=== PATIENT | male | born 1955 | race Caucasian/White ===

== ENCOUNTER 2016-12-02 21:22 | Emergency (ER) | payer OTHER ==
--- NOTE | 2016-12-02 23:08 | DIAGNOSTIC IMAGING REPORT ---
PROCEDURE: XR CHEST 1 VIEW INDICATION: SHORTNESS OF BREATH TECHNIQUE: Portable AP view 10:24 p.m. COMPARISON: None. FINDINGS: Lungs are clear. Peribronchial cuffing. Heart and mediastinum are normal. Thorax is normal. IMPRESSION: 1. Bronchitis.
--- NOTE | 2016-12-03 00:27 | ED NURSING NOTES ---
Clinical Report - Nurses [facility] [address] [place] [address] 12/02/2016 21:24 Patient: JAVI ABBASI TRIAGE Triage time 21:57. Acuity: LEVEL 4. Alert. No acute distress. --22:02 Jocelyn Felix R.N. 21:57 12/02/16. BP: 152/73. HR: 86. RR: 16 (regular and unlabored). O2 saturation: 94% on room air. Temp: 98.2 F (oral). --22:02 Jocelyn Felix R.N. Chief Complaint: DYSPNEA and COUGH. --00:39 Jocelyn Felix R.N. Weight: 112.4 kg stated. Height/Length: 67 inches Per Patient. BMI: 38.8. --22:02 Jocelyn Felix R.N. Medications Advair Diskus Inhalation, 2x a day. Albuterol Sulfate HFA Inhalation. Aleve Oral, daily. AmLODIPine Besylate Oral (Tablet 5 mg) 1 tablet, daily. ASA Oral 81mg , daily. Lipitor Oral (Tablet 40 mg) 1 tablet, daily. Lisinopril Oral (Tablet 10 mg) 1 tablet, daily. Singulair Oral (Tablet 10 mg) 1 tablet, daily. --22: Jocelyn Felix R.N. Allergies No Known Drug Allergy. --22:01 Jocelyn Felix R.N. 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 ( pt reports yesterday pt was at work and there was a clogged drain, someone else put a carpet cleaner in it and today pt reports he put draino down the drain and "caustic fumes" made him cough and his throat closed up and he was able to slow his breathing and get his throat to open up.). This started today. Onset. (at about 1400). SOCIAL HX: Heavy tobacco smoker (cigarette)- 1 pack per day. Occasional alcohol use. No drug use. NUTRITIONAL RISK ASSESSMENT: The nutritional risk assessment revealed no deficiencies. FUNCTIONAL ASSESSMENT: Functional assessment: no impairments noted. --22:02 Jocelyn Felix R.N. PROBLEMS: Sciatica. Fractured Metatarsal. Hyperlipidemia. Asthma. Hypercholesterolemia. Hypertension. --22:02 Jocelyn Felix R.N. ADDITIONAL SURGERIES: Cardiac stent. Foot surgery. Knee Surgery. --22:02 Jocelyn Felix R.N. Interventions ID band on patient. To treatment room. --22:02 Jocelyn Felix R.N. PHYSICAL ASSESSMENT Ambulatory to room. Patient gowned. GENERAL / NEURO / PSYCH: Alert. Oriented X 4. Appears in no acute distress. HEENT: Mucous membranes are pink. RESPIRATORY: Respirations not labored. CVS: Capillary refill less than 2 seconds. SKIN: Skin is warm and dry. --22:03 Jocelyn Felix R.N. NURSING PROGRESS NOTES Head of bed elevated. Two patient identifiers checked. Call light placed in reach. Side rails up x 1. Bed placed in lowest position. Brakes of bed on. --22:03 Jocelyn Felix R.N. Patient ready for evaluation- chart flagged. --22:03 Jocelyn Felix R.N. 22:45 12/02/2016 Duoneb (Ipratropium-Albuterol) Neb TX Nebulizer 1 unit dose given. Given by the respiratory therapist. Allergies verified and confirmed 5 rights. --22:49 Jocelyn Felix R.N. 22:49 12/02/2016 Prednisone PO Tablets 40 mg given. Allergies verified and confirmed 5 rights. --22:49 Jocelyn Felix R.N. 23:21 12/02/2016 Duoneb (Ipratropium-Albuterol) Neb TX Nebulizer 1 unit dose given. Given by the respiratory therapist. Allergies verified and confirmed 5 rights. --23:21 Joceyln Felix R.N. 23:30 12/02/2016 Levofloxacin PO Tablets 500 mg given. Allergies verified and confirmed 5 rights. --23:30 Jocelyn Felix R.N. 23:30 12/02/16. BP: 138/59. HR: 75. RR: 16. O2 saturation: 95% on room air. Castillo-Irby pain scale: 2/10. --23:30 Jocelyn Felix R.N. Reassessment after medication administered. Overall patient status- he states feels better. --23:30 Jocelyn Felix R.N. DISPOSITION / DISCHARGE Condition at departure: stable. No learning barriers present. Discharge instructions provided and reviewed with the patient. Reviewed medication(s) side effects, precautions, dosing and course information. Prescription(s) given to the patient. Patient verbalized understanding. Written instructions provided in [place]. The patient was discharged home and accompanied by spouse. He left the Emergency Department ambulatory and via private vehicle. Spouse driving. --00:39 Jocelyn Felix R.N. 00:38 12/03/16. BP: 119/63. HR: 75. RR: 15 (regular and unlabored). O2 saturation: 94% on room air. Temp: deferred. Pain level now: 0/10. --00:39 Jocelyn Felix R.N. Locked/Released at 12/03/2016 0:39 by Jocelyn Felix R.N.
--- NOTE | 2016-12-03 00:27 | ED NURSING NOTES ---
Clinical Report - Nurses [facility] [address] [place] [address] 12/02/2016 21:24 Patient: JAVI ABBASI TRIAGE Triage time 21:57. Acuity: LEVEL 4. Alert. No acute distress. --22:02 Jocelyn Felix R.N. 21:57 12/02/16. BP: 152/73. HR: 86. RR: 16 (regular and unlabored). O2 saturation: 94% on room air. Temp: 98.2 F (oral). --22:02 Jocelyn Felix R.N. Chief Complaint: DYSPNEA and COUGH. --00:39 Jocelyn Felix R.N. Weight: 112.4 kg stated. Height/Length: 67 inches Per Patient. BMI: 38.8. --22:02 Jocelyn Felix R.N. Medications Advair Diskus Inhalation, 2x a day. Albuterol Sulfate HFA Inhalation. Aleve Oral, daily. AmLODIPine Besylate Oral (Tablet 5 mg) 1 tablet, daily. ASA Oral 81mg , daily. Lipitor Oral (Tablet 40 mg) 1 tablet, daily. Lisinopril Oral (Tablet 10 mg) 1 tablet, daily. Singulair Oral (Tablet 10 mg) 1 tablet, daily. --22: Jocelyn Felix R.N. Allergies No Known Drug Allergy. --22:01 Jocelyn Felix R.N. 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 ( pt reports yesterday pt was at work and there was a clogged drain, someone else put a seed cleaner in it and today pt reports he put draino down the drain and "caustic fumes" made him cough and his throat closed up and he was able to slow his breathing and get his throat to open up.). This started today. Onset. (at about 1400). SOCIAL HX: Heavy tobacco smoker (cigarette)- 1 pack per day. Occasional alcohol use. No drug use. NUTRITIONAL RISK ASSESSMENT: The nutritional risk assessment revealed no deficiencies. FUNCTIONAL ASSESSMENT: Functional assessment: no impairments noted. --22:02 Jocelyn Felix R.N. PROBLEMS: Sciatica. Fractured Metatarsal. Hyperlipidemia. Asthma. Hypercholesterolemia. Hypertension. --22:02 Jocelyn Felix R.N. ADDITIONAL SURGERIES: Cardiac stent. Foot surgery. Knee Surgery. --22:02 Jocelyn Felix R.N. Interventions ID band on patient. To treatment room. --22:02 Jocelyn Felix R.N. PHYSICAL ASSESSMENT Ambulatory to room. Patient gowned. GENERAL / NEURO / PSYCH: Alert. Oriented X 4. Appears in no acute distress. HEENT: Mucous membranes are pink. RESPIRATORY: Respirations not labored. CVS: Capillary refill less than 2 seconds. SKIN: Skin is warm and dry. --22:03 Jocelyn Felix R.N. NURSING PROGRESS NOTES Head of bed elevated. Two patient identifiers checked. Call light placed in reach. Side rails up x 1. Bed placed in lowest position. Brakes of bed on. --22:03 Jocelyn Felix R.N. Patient ready for evaluation- chart flagged. --22:03 Jocelyn Felix R.N. 22:45 12/02/2016 Duoneb (Ipratropium-Albuterol) Neb TX Nebulizer 1 unit dose given. Given by the respiratory therapist. Allergies verified and confirmed 5 rights. --22:49 Jocelyn Felix R.N. 22:49 12/02/2016 Prednisone PO Tablets 40 mg given. Allergies verified and confirmed 5 rights. --22:49 Jocelyn Felix R.N. 23:21 12/02/2016 Duoneb (Ipratropium-Albuterol) Neb TX Nebulizer 1 unit dose given. Given by the respiratory therapist. Allergies verified and confirmed 5 rights. --23:21 Jocelyn Felix R.N. 23:30 12/02/2016 Levofloxacin PO Tablets 500 mg given. Allergies verified and confirmed 5 rights. --23:30 Jocelyn Felix R.N. 23:30 12/02/16. BP: 138/59. HR: 75. RR: 16. O2 saturation: 95% on room air. Castillo-Riby pain scale: 2/10. --23:30 Jocelyn Felix R.N. Reassessment after medication administered. Overall patient status- he states feels better. --23:30 Jocelyn Felix R.N. DISPOSITION / DISCHARGE Condition at departure: stable. No learning barriers present. Discharge instructions provided and reviewed with the patient. Reviewed medication(s) side effects, precautions, dosing and course information. Prescription(s) given to the patient. Patient verbalized understanding. Written instructions provided in [place]. The patient was discharged home and accompanied by spouse. He left the Emergency Department ambulatory and via private vehicle. Spouse driving. --00:39 Jocelyn Felix R.N. 00:38 12/03/16. BP: 119/63. HR: 75. RR: 15 (regular and unlabored). O2 saturation: 94% on room air. Temp: deferred. Pain level now: 0/10. --00:39 Jocelyn Felix R.N. Locked/Released at 12/03/2016 0:39 by Jocelyn Felix R.N.
--- NOTE | 2016-12-03 00:27 | ED ORDER SUMMARY ---
..... Patient: JAVI ABBASI OrderSheet [facility] VisitID: [id number] [address] [place] [address] 61y, M Registration Date/Time: 12/02/2016 ORDER SHEET Weight: 112.4 kg (stated) Allergies: No Known Drug Allergy GENERAL ORDERS: Chest 1V Urgent (22:32 12/02/2016 Maki Lynch) (Ack 22:44 Petty) (22:44 Bessbell) MEDICATION ORDERS: DuoNeb Neb Tx 1 unit dose (NOW) (22:12/02/2016 Maki Lynch) (22:49 RCollier R.N.) Prednisone PO 40 mg (NOW) (:12/02/2016 Maki Lynch) (Ack 22:44 RCollier R.N.) (22:49 RCollier R.N.) DuoNeb Neb Tx 1 unit dose (NOW) (23:12/02/2016 Maki Lynch) (23:21 RCollier R.N.) Levofloxacin PO 500 mg (NOW) (23:13 12/02/2016 Maki Lynch) (Ack 23:21 RCollier R.N.) (23:30 RCollier R.N.) IV FLUIDS: ORDER SHEET NOTES: [Electronically signed by Jocelyn Felix R.N. (00:39 12/03/2016)] [Electronically signed by Deangelo Martinez Dr. (02:38 12/03/2016)] [Electronically locked/signed by Jocelyn Felix R.N. (00:39 12/03/2016)]
--- NOTE | 2016-12-03 00:27 | ED CLINICAL REPORT ---
Clinical Report - Physicians/Mid Levels [facility] [address] [place] [address] 12/02/2016 21:24 Patient: JAVI ABBASI Time Seen: 22:03; initial patient contact. Arrived- By private vehicle. Historian- patient. HISTORY OF PRESENT ILLNESS Chief Complaint: HISTORY OF ASTHMA. This started today and is still present. The dyspnea is described as moderate. The dyspnea is worsened by cough. He has not had worsening of dyspnea with walking, exertion or supine position. No improvement of dyspnea with rest, oxygen or sitting upright. The patient has had a cough and wheezing. No sputum production, fever, sweating episodes or chills. No chest pain or discomfort, calf pain, foot swelling or palpitations. (Exposed to fumes from cleaning fluid which initiated symptoms immediately.). Similar symptoms previously: Many times. Recent medical care: Not recently seen/assessed. REVIEW OF SYSTEMS No eye irritation, sore throat, nasal discharge, sinus drainage or nausea. No vomiting, headache, fainting episodes or blurred vision. All systems otherwise negative, except as recorded above. PAST HISTORY Sciatica. Fractured Metatarsal. Hyperlipidemia. Asthma. Hypercholesterolemia. Hypertension. SURGERIES: Cardiac stent. Foot surgery. Knee Surgery. Medications: Advair Diskus Inhalation, 2x a day. Albuterol Sulfate HFA Inhalation. Aleve Oral, daily. AmLODIPine Besylate Oral (Tablet 5 mg) 1 tablet, daily. ASA Oral 81mg , daily. Lipitor Oral (Tablet 40 mg) 1 tablet, daily. Lisinopril Oral (Tablet 10 mg) 1 tablet, daily. Singulair Oral (Tablet 10 mg) 1 tablet, daily. Allergies: No Known Drug Allergy. SOCIAL HISTORY Current every day heavy tobacco smoker. No alcohol use or drug use. ADDITIONAL NOTES The nursing notes have been reviewed. PHYSICAL EXAM Vital Signs: 12/02/2016 21:57 BP: 152/73. HR: 86. RR: 16. O2 saturation: 94%. Temp: 98.2 F. Have been reviewed. Hypertensive. Heart rate normal. Respiratory rate normal. Temperature normal. Oxygen saturation low. Appearance: Alert. No acute distress. Eyes: Eyes normal inspection. ENT: Pharynx normal. Neck: Normal inspection. No jugular venous distention. CVS: Normal heart rate and rhythm. Heart sounds normal. Respiratory: Mild respiratory distress with accessory muscle use and retractions. Mildly prolonged expirations. Mildly decreased air movement diffusely over both lungs. Expiratory moderate bilateral wheezes diffusely and posteriorly. No rales or rhonchi. Skin: Skin warm and dry. Normal skin color. Extremities: No calf tenderness. No lower extremity edema. Neuro: Oriented X 3. LABS, X-RAYS, AND EKG Chest X-ray: No acute disease. No infiltrate. (Peribronchiole cuffing). Views: AP. Technique: good. The X-rays were independently viewed by me and interpreted contemporaneously by me. Prior films were not available for comparison. PROGRESS AND PROCEDURES Disposition: Discharged home in good and improved condition. Condition: good. CLINICAL IMPRESSION Mild persistent asthma with an acute exacerbation. No status asthmaticus, pneumonia, hypoxemia or acute respiratory failure. INSTRUCTIONS Your Current Medications: CONTINUE TAKING THE FOLLOWING MEDICATIONS: Advair Diskus Inhalation : 2x a day. Albuterol Sulfate HFA Inhalation. Aleve Oral : daily. AmLODIPine Besylate Oral : Tablet 5 mg, 1 tablet daily. ASA Oral : 81mg daily. Lipitor Oral : Tablet 40 mg, 1 tablet daily. Lisinopril Oral : Tablet 10 mg, 1 tablet daily. Singulair Oral : Tablet 10 mg, 1 tablet daily. Prescription Medications: Levofloxacin 500 mg: take 1 tab orally every day for 4 days. No refills. Prednisone 20 mg: take 2 orally every day for 4 days. Dispense sufficient quantity. No refills. Follow-up: Follow up with your doctor in about two days. Call for an appointment. Blood pressure screening was not performed during this visit because the patient has an active diagnosis of hypertension. (Electronically signed by Deangelo Martinez Dr. 12/03/2016 2:38)
--- NOTE | 2016-12-03 00:27 | ED ORDER SUMMARY ---
..... Patient: JAVI ABBASI OrderSheet [facility] VisitID: [id number] [address] [place] [address] 61y, M Registration Date/Time: 12/02/2016 ORDER SHEET Weight: 112.4 kg (stated) Allergies: No Known Drug Allergy GENERAL ORDERS: Chest 1V Urgent (22:32 12/02/2016 Maki Lynch) (Ack 22:44 Petty) (22:44 Bessbell) MEDICATION ORDERS: DuoNeb Neb Tx 1 unit dose (NOW) (22:12/02/2016 Maki Lynch) (22:49 RCollier R.N.) Prednisone PO 40 mg (NOW) (:12/02/2016 Maki Lynch) (Ack 22:44 RCollier R.N.) (22:49 RCollier R.N.) DuoNeb Neb Tx 1 unit dose (NOW) (23:12/02/2016 Maki Lynch) (23:21 RCollier R.N.) Levofloxacin PO 500 mg (NOW) (23:13 12/02/2016 Maki Lynch) (Ack 23:21 RCollier R.N.) (23:30 RCollier R.N.) IV FLUIDS: ORDER SHEET NOTES: [Electronically signed by Jocelyn Felix R.N. (00:39 12/03/2016)] [Electronically signed by Deangelo Martinez Dr. (02:38 12/03/2016)] [Electronically locked/signed by Jocelyn Felix R.N. (00:39 12/03/2016)]
--- NOTE | 2016-12-03 02:38 | ED DISCHARGE INSTRUCTIONS ---
Patient: JAVI ABBASI General Instructions [facility] VisitID: [id number] [place] [address] 61y, M Registration Date/Time: 12/02/2016 Mild persistent asthma with an acute exacerbation. No status asthmaticus, pneumonia, hypoxemia or acute respiratory failure. INSTRUCTIONS Your Current Medications: CONTINUE TAKING THE FOLLOWING MEDICATIONS: Advair Diskus Inhalation : 2x a day. Albuterol Sulfate HFA Inhalation. Aleve Oral : daily. AmLODIPine Besylate Oral : Tablet 5 mg, 1 tablet daily. ASA Oral : 81mg daily. Lipitor Oral : Tablet 40 mg, 1 tablet daily. Lisinopril Oral : Tablet 10 mg, 1 tablet daily. Singulair Oral : Tablet 10 mg, 1 tablet daily. Prescription Medications: Levofloxacin 500 mg: take 1 tab orally every day for 4 days. No refills. Prednisone 20 mg: take 2 orally every day for 4 days. Dispense sufficient quantity. No refills. Follow-up: Follow up with your doctor in about two days. Call for an appointment. Blood pressure screening was not performed during this visit because the patient has an active diagnosis of hypertension. ADDITIONAL INFORMATION Bronchitis With Wheezing (Viral Or Bacterial: Adult) Bronchitis is an infection of the air passages. It often occurs during the common cold and is usually caused by a virus. Symptoms include cough with mucus (phlegm) and low-grade fever. If there is a lot of inflammation, air flow is restricted. The air passages may also go into spasm, especially if you are an asthmatic. This causes wheezing and difficulty breathing even in persons who do not have asthma. Bronchitis usually lasts 7-14 days. The wheezing should improve with treatment during the first week. An inhaler is often prescribed to relax the air passages and stop wheezing. Antibiotics will be prescribed if your doctor thinks there is also a secondary bacterial infection. Home Care: If symptoms are severe, rest at home for the first 2-3 days. When resuming activity, don't let yourself become overly tired. Do not smoke and avoid exposure to the smoke of others. You may use acetaminophen (Tylenol) or ibuprofen (Motrin, Advil) to control fever, unless another medicine was prescribed. [NOTE: If you have chronic liver or kidney disease or ever had a stomach ulcer or GI bleeding, talk with your doctor before using these medicines.] (Aspirin should never be used in anyone under 18 years of age who is ill with a fever. It may cause severe liver damage.) Your appetite may be poor so a light diet is fine. Avoid dehydration by drinking 6-8 glasses of fluids per day (water, soft, drinks, juices, tea, soup, etc.). Extra fluids will help loosen secretions in the lungs. [id number] cough medicines that containdextromethorphan(such as Robitussin DM) and decongestants (Actifed or Sudafed) may help relieve cough and congestion. [NOTE: Do not use decongestants if you have high blood pressure.] If you were given an inhaler, use it exactly as directed. If you need to use it more often than prescribed, your condition may be worsening. Contact your doctor or this facility. If prescribed, finish all antibiotic medicine, even if you are feeling better after only a few days. Follow Up With Your Doctor Or As Directed If You Are Not Starting To Feel Better After Three Days. [NOTE: If you are age 65 or older, or if you have chronic asthma or COPD, we recommend a pneumococcal vaccination every five years and a yearly influenza vaccination (flu shot) every . Ask your doctor about this. If you had an x-ray or EKG (electrocardiogram), it will be reviewed by a specialist. You will be notified of any new findings that may affect your care.] Get Prompt Medical Attention If Any Of The Following Occur: Increased wheezing, shortness of breath or pain with breathing Fever of 100.4F (38C) oral or higher, not better with fever medication Coughing up blood or increasing amounts of colored sputum Weakness, drowsiness, headache, facial pain, ear pain or a stiff neck Lower leg swelling, tenderness, redness or pain Levofloxacin Oral tablet What is this medicine? LEVOFLOXACIN (blake lima) is a quinolone antibiotic. It is used to treat certain kinds of bacterial infections. It will not work for colds, flu, or other viral infections. How should I use this medicine? Take this medicine by mouth with a full glass of water. Follow the directions on the prescription label. This medicine can be taken with or without food. Take your medicine at regular intervals. Do not take your medicine more often than directed. Do not skip doses or stop your medicine early even if you feel better. Do not stop taking except on your doctor's advice. A special MedGuide will be given to you by the pharmacist with each prescription and refill. Be sure to read this information carefully each time. Talk to your warehouse associate driver regarding the use of this medicine in children. While this drug may be prescribed for children as young as 6 months for selected conditions, precautions do apply. What side effects may I notice from receiving this medicine? Side effects that you should report to your doctor or health animal care assistant as soon as possible: -allergic reactions like skin rash or hives, swelling of the face, lips, or tongue -changes in vision -confusion, nightmares or hallucinations -difficulty breathing -irregular heartbeat, chest pain -joint, muscle or tendon pain -pain or difficulty passing urine -persistent headache with or without blurred vision -redness, blistering, peeling or loosening of the skin, including inside the mouth -seizures -unusual pain, numbness, tingling, or weakness -vaginal irritation, discharge Side effects that usually do not require medical attention (report to your doctor or health animal care assistant if they continue or are bothersome): -diarrhea -dry mouth -headache -stomach upset, nausea -trouble sleeping What may interact with this medicine? Do not take this medicine with any of the following medications: - arsenic trioxide - chloroquine - droperidol - medicines for irregular heart rhythm like amiodarone, disopyramide, dofetilide, flecainide, quinidine, procainamide, sotalol - some medicines for depression or mental problems like phenothiazines, pimozide, and ziprasidone This medicine may also interact with the following medications: - amoxapine -antacids - cisapride - dairy products - didanosine (ddI) buffered tablets or powder - haloperidol - multivitamins -NSAIDS, medicines for pain and inflammation, like ibuprofen or naproxen - retinoid products like tretinoin or isotretinoin - risperidone - some other antibiotics like clarithromycin or erythromycin - sucralfate - theophylline - warfarin What if I miss a dose? If you miss a dose, take it as soon as you remember. If it is almost time for your next dose, take only that dose. Do not take double or extra doses. Where should I keep my medicine? Keep out of the reach of children. Store at room temperature between 15 and 30 degrees C (59 and 86 degrees F). Keep in a tightly closed container. Throw away any unused medicine after the expiration date. What should I tell my health care provider before I take this medicine? They need to know if you have any of these conditions: cerebral disease irregular heartbeat kidney disease seizure disorder an unusual or allergic reaction to levofloxacin, other antibiotics or medicines, foods, dyes, or preservatives or trying to get breast-feeding What should I watch for while using this medicine? Tell your doctor or health animal care assistant if your symptoms do not improve or if they get worse. Drink several glasses of water a day and cut down on drinks that contain caffeine. You must not get dehydrated while taking this medicine. You may get drowsy or dizzy. Do not drive, use machinery, or do anything that needs mental alertness until you know how this medicine affects you. Do not sit or stand up quickly, especially if you are an older patient. This reduces the risk of dizzy or fainting spells. This medicine can make you more sensitive to the sun. Keep out of the sun. If you cannot avoid being in the sun, wear protective clothing and use a sunscreen. Do not use sun lamps or tanning beds/booths. Contact your doctor if you get a sunburn. If you are a diabetic monitor your blood glucose carefully. If you get an unusual reading stop taking this medicine and call your doctor right away. Do not treat diarrhea with [id number] products. Contact your doctor if you have diarrhea that lasts more than 2 days or if the diarrhea is severe and watery. Avoid antacids, calcium, iron, and zinc products for 2 hours before and 2 hours after taking a dose of this medicine. Prednisone Oral tablet What is this medicine? PREDNISONE (PRED ni sone) is a corticosteroid. It is commonly used to treat inflammation of the skin, joints, lungs, and other organs. Common conditions treated include asthma, allergies, and arthritis. It is also used for other conditions, such as blood disorders and diseases of the adrenal glands. How should I use this medicine? Take this medicine by mouth with a glass of water. Follow the directions on the prescription label. Take this medicine with food. If you are taking this medicine once a day, take it in the morning. Do not take more medicine than you are told to take. Do not suddenly stop taking your medicine because you may develop a severe reaction. Your doctor will tell you how much medicine to take. If your doctor wants you to stop the medicine, the dose may be slowly lowered over time to avoid any side effects. Talk to your warehouse associate driver regarding the use of this medicine in children. Special care may be needed. What side effects may I notice from receiving this medicine? Side effects that you should report to your doctor or health animal care assistant as soon as possible: allergic reactions like skin rash, itching or hives, swelling of the face, lips, or tongue changes in emotions or moods changes in vision depressed mood eye pain fever or chills, cough, sore throat, pain or difficulty passing urine increased thirst swelling of ankles, feet Side effects that usually do not require medical attention (report to your doctor or health animal care assistant if they continue or are bothersome): confusion, excitement, restlessness headache nausea, vomiting skin problems, acne, thin and shiny skin trouble sleeping weight gain What may interact with this medicine? Do not take this medicine with any of the following medications: metyrapone mifepristone This medicine may also interact with the following medications: aminoglutethimide amphotericin B aspirin and aspirin-like medicines barbiturates certain medicines for diabetes, like glipizide or glyburide cholestyramine cholinesterase inhibitors cyclosporine digoxin diuretics ephedrine female hormones, like estrogens and control pills isoniazid ketoconazole NSAIDS, medicines for pain and inflammation, like ibuprofen or naproxen phenytoin rifampin toxoids vaccines warfarin What if I miss a dose? If you miss a dose, take it as soon as you can. If it is almost time for your next dose, talk to your doctor or health animal care assistant. You may need to miss a dose or take an extra dose. Do not take double or extra doses without advice. Where should I keep my medicine? Keep out of the reach of children. Store at room temperature between 15 and 30 degrees C (59 and 86 degrees F). Protect from light. Keep container tightly closed. Throw away any unused medicine after the expiration date. What should I tell my health care provider before I take this medicine? They need to know if you have any of these conditions: Liberty's syndrome diabetes glaucoma heart disease high blood pressure infection (especially a virus infection such as chickenpox, cold sores, or herpes) kidney disease liver disease mental illness myasthenia gravis osteoporosis seizures stomach or intestine problems thyroid disease an unusual or allergic reaction to lactose, prednisone, other medicines, foods, dyes, or preservatives or trying to get breast-feeding What should I watch for while using this medicine? Visit your doctor or health animal care assistant for regular checks on your progress. If you are taking this medicine over a prolonged period, carry an identification card with your name and address, the type and dose of your medicine, and your doctor's name and address. This medicine may increase your risk of getting an infection. Tell your doctor or health animal care assistant if you are around anyone with measles or chickenpox, or if you develop sores or blisters that do not heal properly. If you are going to have surgery, tell your doctor or health animal care assistant that you have taken this medicine within the last twelve months. Ask your doctor or health animal care assistant about your diet. You may need to lower the amount of salt you eat. This medicine may affect blood sugar levels. If you have diabetes, check with your doctor or health animal care assistant before you change your diet or the dose of your diabetic medicine. You have been given the following additional information: Bronchitis With Wheezing (Adult) Levofloxacin Oral tablet Prednisone Oral tablet (Electronically signed by Deangelo Martinez Dr. 12/03/2016 2:38)
--- NOTE | 2016-12-03 02:38 | ED MAR SUMMARY ---
..... Medication Administration Record [facility] [address] [place] [address] Patient: JAVI ABBASI Visit ID: [id number] 61y, M Weight: 112.4 kg Height/Length: 67 in BMI: 38.8 ALLERGIES: No Known Drug Allergy Given 22:45 12/02/2016 Jocelyn Felix R.N. Medication Administered: DUONEB [NEB TX] (IPRATROPIUM-ALBUTEROL), Dose: 1 unit dose Nebulizer Neb TX. Medication Ordered: DuoNeb Neb Tx 1 unit dose (NOW). Given 22:49 12/02/2016 Jocelyn Felix R.N. Medication Administered: PREDNISONE [PO], Dose: 40 mg Tablets PO. Medication Ordered: Prednisone PO 40 mg (NOW). Given 23:21 12/02/2016 Jocelyn Felix R.N. Medication Administered: DUONEB [NEB TX] (IPRATROPIUM-ALBUTEROL), Dose: 1 unit dose Nebulizer Neb TX. Medication Ordered: DuoNeb Neb Tx 1 unit dose (NOW). Given 23:30 12/02/2016 Jocelyn Felix R.NDemario Medication Administered: LEVOFLOXACIN [PO], Dose: 500 mg Tablets PO. Medication Ordered: Levofloxacin PO 500 mg (NOW).
--- NOTE | 2016-12-03 02:38 | ED MED RECONCILIATION SUMMARY ---
Patient: JAVI ABBASI Medication Reconciliation Report [facility] VisitID: [id number] [address] [place] [address] 61y, M Registration Date/Time: 12/02/2016 Weight: 112.4 kg Height/Length: 67 in. BMI: 38.8 ALLERGIES: No Known Drug Allergy The patient's Home Medications are listed below: CONTINUE TAKING THE FOLLOWING MEDICATIONS: Advair Diskus Inhalation, 2x a day Albuterol Sulfate HFA Inhalation Aleve Oral, daily AmLODIPine Besylate Oral (5 mg) 1 tablet, daily ASA Oral 81mg , daily Lipitor Oral (40 mg) 1 tablet, daily Lisinopril Oral (10 mg) 1 tablet, daily Singulair Oral (10 mg) 1 tablet, daily The source(s) of the original Home Medication information: Not obtained. The following Medications were given to the patient in the Emergency Department: Prednisone [PO] PO 40 mg, administered: 12/02/2016 10:49:00 PM Duoneb [Neb Tx] Neb TX 1 unit dose, administered: 12/02/2016 10:45:00 PM Duoneb [Neb Tx] Neb TX 1 unit dose, administered: 12/02/2016 11:21:00 PM Levofloxacin [PO] PO 500 mg, administered: 12/02/2016 11:30:00 PM The following Medications were prescribed to the patient: Levofloxacin 500 mg: take 1 tab orally every day for 4 days. No refills. -- Deangelo Martinez Dr. Prednisone 20 mg: take 2 orally every day for 4 days. Dispense sufficient quantity. No refills. -- Deangelo Martinez Dr.
--- NOTE | 2016-12-03 02:38 | ED DISCHARGE INSTRUCTIONS ---
Patient: JAVI ABBASI General Instructions [facility] VisitID: [id number] [place] [address] 61y, M Registration Date/Time: 12/02/2016 Mild persistent asthma with an acute exacerbation. No status asthmaticus, pneumonia, hypoxemia or acute respiratory failure. INSTRUCTIONS Your Current Medications: CONTINUE TAKING THE FOLLOWING MEDICATIONS: Advair Diskus Inhalation : 2x a day. Albuterol Sulfate HFA Inhalation. Aleve Oral : daily. AmLODIPine Besylate Oral : Tablet 5 mg, 1 tablet daily. ASA Oral : 81mg daily. Lipitor Oral : Tablet 40 mg, 1 tablet daily. Lisinopril Oral : Tablet 10 mg, 1 tablet daily. Singulair Oral : Tablet 10 mg, 1 tablet daily. Prescription Medications: Levofloxacin 500 mg: take 1 tab orally every day for 4 days. No refills. Prednisone 20 mg: take 2 orally every day for 4 days. Dispense sufficient quantity. No refills. Follow-up: Follow up with your doctor in about two days. Call for an appointment. Blood pressure screening was not performed during this visit because the patient has an active diagnosis of hypertension. ADDITIONAL INFORMATION Bronchitis With Wheezing (Viral Or Bacterial: Adult) Bronchitis is an infection of the air passages. It often occurs during the common cold and is usually caused by a virus. Symptoms include cough with mucus (phlegm) and low-grade fever. If there is a lot of inflammation, air flow is restricted. The air passages may also go into spasm, especially if you are an asthmatic. This causes wheezing and difficulty breathing even in persons who do not have asthma. Bronchitis usually lasts 7-14 days. The wheezing should improve with treatment during the first week. An inhaler is often prescribed to relax the air passages and stop wheezing. Antibiotics will be prescribed if your doctor thinks there is also a secondary bacterial infection. Home Care: If symptoms are severe, rest at home for the first 2-3 days. When resuming activity, don't let yourself become overly tired. Do not smoke and avoid exposure to the smoke of others. You may use acetaminophen (Tylenol) or ibuprofen (Motrin, Advil) to control fever, unless another medicine was prescribed. [NOTE: If you have chronic liver or kidney disease or ever had a stomach ulcer or GI bleeding, talk with your doctor before using these medicines.] (Aspirin should never be used in anyone under 18 years of age who is ill with a fever. It may cause severe liver damage.) Your appetite may be poor so a light diet is fine. Avoid dehydration by drinking 6-8 glasses of fluids per day (water, soft, drinks, juices, tea, soup, etc.). Extra fluids will help loosen secretions in the lungs. [id number] cough medicines that containdextromethorphan(such as Robitussin DM) and decongestants (Actifed or Sudafed) may help relieve cough and congestion. [NOTE: Do not use decongestants if you have high blood pressure.] If you were given an inhaler, use it exactly as directed. If you need to use it more often than prescribed, your condition may be worsening. Contact your doctor or this facility. If prescribed, finish all antibiotic medicine, even if you are feeling better after only a few days. Follow Up With Your Doctor Or As Directed If You Are Not Starting To Feel Better After Three Days. [NOTE: If you are age 65 or older, or if you have chronic asthma or COPD, we recommend a pneumococcal vaccination every five years and a yearly influenza vaccination (flu shot) every . Ask your doctor about this. If you had an x-ray or EKG (electrocardiogram), it will be reviewed by a specialist. You will be notified of any new findings that may affect your care.] Get Prompt Medical Attention If Any Of The Following Occur: Increased wheezing, shortness of breath or pain with breathing Fever of 100.4F (38C) oral or higher, not better with fever medication Coughing up blood or increasing amounts of colored sputum Weakness, drowsiness, headache, facial pain, ear pain or a stiff neck Lower leg swelling, tenderness, redness or pain Levofloxacin Oral tablet What is this medicine? LEVOFLOXACIN (blake lima) is a quinolone antibiotic. It is used to treat certain kinds of bacterial infections. It will not work for colds, flu, or other viral infections. How should I use this medicine? Take this medicine by mouth with a full glass of water. Follow the directions on the prescription label. This medicine can be taken with or without food. Take your medicine at regular intervals. Do not take your medicine more often than directed. Do not skip doses or stop your medicine early even if you feel better. Do not stop taking except on your doctor's advice. A special MedGuide will be given to you by the pharmacist with each prescription and refill. Be sure to read this information carefully each time. Talk to your 7th grade teacher regarding the use of this medicine in children. While this drug may be prescribed for children as young as 6 months for selected conditions, precautions do apply. What side effects may I notice from receiving this medicine? Side effects that you should report to your doctor or health medicare contact specialist as soon as possible: -allergic reactions like skin rash or hives, swelling of the face, lips, or tongue -changes in vision -confusion, nightmares or hallucinations -difficulty breathing -irregular heartbeat, chest pain -joint, muscle or tendon pain -pain or difficulty passing urine -persistent headache with or without blurred vision -redness, blistering, peeling or loosening of the skin, including inside the mouth -seizures -unusual pain, numbness, tingling, or weakness -vaginal irritation, discharge Side effects that usually do not require medical attention (report to your doctor or health medicare contact specialist if they continue or are bothersome): -diarrhea -dry mouth -headache -stomach upset, nausea -trouble sleeping What may interact with this medicine? Do not take this medicine with any of the following medications: - arsenic trioxide - chloroquine - droperidol - medicines for irregular heart rhythm like amiodarone, disopyramide, dofetilide, flecainide, quinidine, procainamide, sotalol - some medicines for depression or mental problems like phenothiazines, pimozide, and ziprasidone This medicine may also interact with the following medications: - amoxapine -antacids - cisapride - dairy products - didanosine (ddI) buffered tablets or powder - haloperidol - multivitamins -NSAIDS, medicines for pain and inflammation, like ibuprofen or naproxen - retinoid products like tretinoin or isotretinoin - risperidone - some other antibiotics like clarithromycin or erythromycin - sucralfate - theophylline - warfarin What if I miss a dose? If you miss a dose, take it as soon as you remember. If it is almost time for your next dose, take only that dose. Do not take double or extra doses. Where should I keep my medicine? Keep out of the reach of children. Store at room temperature between 15 and 30 degrees C (59 and 86 degrees F). Keep in a tightly closed container. Throw away any unused medicine after the expiration date. What should I tell my health care provider before I take this medicine? They need to know if you have any of these conditions: cerebral disease irregular heartbeat kidney disease seizure disorder an unusual or allergic reaction to levofloxacin, other antibiotics or medicines, foods, dyes, or preservatives or trying to get breast-feeding What should I watch for while using this medicine? Tell your doctor or health medicare contact specialist if your symptoms do not improve or if they get worse. Drink several glasses of water a day and cut down on drinks that contain caffeine. You must not get dehydrated while taking this medicine. You may get drowsy or dizzy. Do not drive, use machinery, or do anything that needs mental alertness until you know how this medicine affects you. Do not sit or stand up quickly, especially if you are an older patient. This reduces the risk of dizzy or fainting spells. This medicine can make you more sensitive to the sun. Keep out of the sun. If you cannot avoid being in the sun, wear protective clothing and use a sunscreen. Do not use sun lamps or tanning beds/booths. Contact your doctor if you get a sunburn. If you are a diabetic monitor your blood glucose carefully. If you get an unusual reading stop taking this medicine and call your doctor right away. Do not treat diarrhea with [id number] products. Contact your doctor if you have diarrhea that lasts more than 2 days or if the diarrhea is severe and watery. Avoid antacids, calcium, iron, and zinc products for 2 hours before and 2 hours after taking a dose of this medicine. Prednisone Oral tablet What is this medicine? PREDNISONE (PRED ni sone) is a corticosteroid. It is commonly used to treat inflammation of the skin, joints, lungs, and other organs. Common conditions treated include asthma, allergies, and arthritis. It is also used for other conditions, such as blood disorders and diseases of the adrenal glands. How should I use this medicine? Take this medicine by mouth with a glass of water. Follow the directions on the prescription label. Take this medicine with food. If you are taking this medicine once a day, take it in the morning. Do not take more medicine than you are told to take. Do not suddenly stop taking your medicine because you may develop a severe reaction. Your doctor will tell you how much medicine to take. If your doctor wants you to stop the medicine, the dose may be slowly lowered over time to avoid any side effects. Talk to your 7th grade teacher regarding the use of this medicine in children. Special care may be needed. What side effects may I notice from receiving this medicine? Side effects that you should report to your doctor or health medicare contact specialist as soon as possible: allergic reactions like skin rash, itching or hives, swelling of the face, lips, or tongue changes in emotions or moods changes in vision depressed mood eye pain fever or chills, cough, sore throat, pain or difficulty passing urine increased thirst swelling of ankles, feet Side effects that usually do not require medical attention (report to your doctor or health medicare contact specialist if they continue or are bothersome): confusion, excitement, restlessness headache nausea, vomiting skin problems, acne, thin and shiny skin trouble sleeping weight gain What may interact with this medicine? Do not take this medicine with any of the following medications: metyrapone mifepristone This medicine may also interact with the following medications: aminoglutethimide amphotericin B aspirin and aspirin-like medicines barbiturates certain medicines for diabetes, like glipizide or glyburide cholestyramine cholinesterase inhibitors cyclosporine digoxin diuretics ephedrine female hormones, like estrogens and control pills isoniazid ketoconazole NSAIDS, medicines for pain and inflammation, like ibuprofen or naproxen phenytoin rifampin toxoids vaccines warfarin What if I miss a dose? If you miss a dose, take it as soon as you can. If it is almost time for your next dose, talk to your doctor or health medicare contact specialist. You may need to miss a dose or take an extra dose. Do not take double or extra doses without advice. Where should I keep my medicine? Keep out of the reach of children. Store at room temperature between 15 and 30 degrees C (59 and 86 degrees F). Protect from light. Keep container tightly closed. Throw away any unused medicine after the expiration date. What should I tell my health care provider before I take this medicine? They need to know if you have any of these conditions: Elburn's syndrome diabetes glaucoma heart disease high blood pressure infection (especially a virus infection such as chickenpox, cold sores, or herpes) kidney disease liver disease mental illness myasthenia gravis osteoporosis seizures stomach or intestine problems thyroid disease an unusual or allergic reaction to lactose, prednisone, other medicines, foods, dyes, or preservatives or trying to get breast-feeding What should I watch for while using this medicine? Visit your doctor or health medicare contact specialist for regular checks on your progress. If you are taking this medicine over a prolonged period, carry an identification card with your name and address, the type and dose of your medicine, and your doctor's name and address. This medicine may increase your risk of getting an infection. Tell your doctor or health medicare contact specialist if you are around anyone with measles or chickenpox, or if you develop sores or blisters that do not heal properly. If you are going to have surgery, tell your doctor or health medicare contact specialist that you have taken this medicine within the last twelve months. Ask your doctor or health medicare contact specialist about your diet. You may need to lower the amount of salt you eat. This medicine may affect blood sugar levels. If you have diabetes, check with your doctor or health medicare contact specialist before you change your diet or the dose of your diabetic medicine. You have been given the following additional information: Bronchitis With Wheezing (Adult) Levofloxacin Oral tablet Prednisone Oral tablet (Electronically signed by Deangelo Martinez Dr. 12/03/2016 2:38)
--- NOTE | 2016-12-03 02:38 | ED MED RECONCILIATION SUMMARY ---
Patient: JAVI ABBASI Medication Reconciliation Report [facility] VisitID: [id number] [address] [place] [address] 61y, M Registration Date/Time: 12/02/2016 Weight: 112.4 kg Height/Length: 67 in. BMI: 38.8 ALLERGIES: No Known Drug Allergy The patient's Home Medications are listed below: CONTINUE TAKING THE FOLLOWING MEDICATIONS: Advair Diskus Inhalation, 2x a day Albuterol Sulfate HFA Inhalation Aleve Oral, daily AmLODIPine Besylate Oral (5 mg) 1 tablet, daily ASA Oral 81mg , daily Lipitor Oral (40 mg) 1 tablet, daily Lisinopril Oral (10 mg) 1 tablet, daily Singulair Oral (10 mg) 1 tablet, daily The source(s) of the original Home Medication information: Not obtained. The following Medications were given to the patient in the Emergency Department: Prednisone [PO] PO 40 mg, administered: 12/02/2016 10:49:00 PM Duoneb [Neb Tx] Neb TX 1 unit dose, administered: 12/02/2016 10:45:00 PM Duoneb [Neb Tx] Neb TX 1 unit dose, administered: 12/02/2016 11:21:00 PM Levofloxacin [PO] PO 500 mg, administered: 12/02/2016 11:30:00 PM The following Medications were prescribed to the patient: Levofloxacin 500 mg: take 1 tab orally every day for 4 days. No refills. -- Deangelo Martinez Dr. Prednisone 20 mg: take 2 orally every day for 4 days. Dispense sufficient quantity. No refills. -- Deangelo Martinez Dr.
--- NOTE | 2016-12-03 02:38 | ED MAR SUMMARY ---
..... Medication Administration Record [facility] [address] [place] [address] Patient: JAVI ABBASI Visit ID: [id number] 61y, M Weight: 112.4 kg Height/Length: 67 in BMI: 38.8 ALLERGIES: No Known Drug Allergy Given 22:45 12/02/2016 Jocelyn Felix R.N. Medication Administered: DUONEB [NEB TX] (IPRATROPIUM-ALBUTEROL), Dose: 1 unit dose Nebulizer Neb TX. Medication Ordered: DuoNeb Neb Tx 1 unit dose (NOW). Given 22:49 12/02/2016 Jocelyn Felix R.N. Medication Administered: PREDNISONE [PO], Dose: 40 mg Tablets PO. Medication Ordered: Prednisone PO 40 mg (NOW). Given 23:21 12/02/2016 Jocelyn Felix R.N. Medication Administered: DUONEB [NEB TX] (IPRATROPIUM-ALBUTEROL), Dose: 1 unit dose Nebulizer Neb TX. Medication Ordered: DuoNeb Neb Tx 1 unit dose (NOW). Given 23:30 12/02/2016 Jocelyn Felix R.NDemario Medication Administered: LEVOFLOXACIN [PO], Dose: 500 mg Tablets PO. Medication Ordered: Levofloxacin PO 500 mg (NOW).
== END 2016-12-03 00:38 | disposition home or self-care (01) ==
LOC: ED SRH 21:22
DX: T54.3X1A Toxic effect of corrosive alkalis and alkali-like substances, accidental (unintentional), initial encounter (principal); J45.31 Mild persistent asthma with (acute) exacerbation; J68.3 Other acute and subacute respiratory conditions due to chemicals, gases, fumes and vapors; I10 Essential (primary) hypertension; E78.5 Hyperlipidemia, unspecified; F17.210 Nicotine dependence, cigarettes, uncomplicated; Z79.82 Long term (current) use of aspirin; Z79.899 Other long term (current) drug therapy; Y92.89 Other specified places as the place of occurrence of the external cause; Y99.0 Civilian activity done for income or pay